=== PATIENT | female | born 1950 | race Caucasian/White ===

== ENCOUNTER 2017-09-29 06:58 | Outpatient (CLI) | payer MEDICARE, BC ==
--- NOTE | 2017-09-29 09:21 | Diagnostic Imaging Report ---
Indication: Cough Comparison: None 2 views of the chest obtained. Findings: Cardiomediastinal silhouette and pulmonary vascularity are within normal limits for age. The diaphragmatic contour is smooth and costophrenic angles are sharp. There are surgical clips in the right axillary region. There is volume loss and deformity of the right breast most likely from prior partial mastectomy. No pleural effusions are identified. The bones are osteopenic. Impression: No acute disease Stigmata of previous right lumpectomy/axillary lymph node dissection.
== END 2017-09-29 08:58 | disposition home or self-care (01) ==
LOC: RAD 06:58
DX: R05 Cough (principal); Z90.11 Acquired absence of right breast and nipple; M85.80 Other specified disorders of bone density and structure, unspecified site
CPT/HCPCS: 71020

== ENCOUNTER 2018-01-29 08:30 | Outpatient (CLI) | payer MEDICARE, BC ==
--- NOTE | 2018-01-29 13:38 | Diagnostic Imaging Report ---
Indication: Shoulder pain Technique: MRI of the left shoulder obtained in a 1.5 [employer]rella magnet. Pulse sequences obtained include axial and coronal proton fast spin-echo with fat saturation, sagittal T1 fast spin-echo, sagittal and coronal T2 fast spin-echo with fat saturation. Findings: The rotator cuff is normal in appearance. There is trace T2 hyperintensity within the subacromial bursa which may represent a mild subacromial bursitis. There is hypertrophy and subchondral irregularity and signal changes noted in the acromioclavicular joint consistent with an arthropathy. Alignment of the shoulder is normal. The long head of the biceps tendon is normal. The glenoid labrum is unremarkable. IMPRESSION: Mild to moderate arthropathy involving the acromioclavicular joint. Findings could be on the basis of a prior AC separation (grade 1 or 2). Please correlate clinically. Mild subacromial bursitis. Negative exam otherwise
--- NOTE | 2018-01-29 14:19 | Diagnostic Imaging Report ---
Indication: Anterior right elbow pain. Technique: MRI of the right elbow was imaged in a 1.5 [employer]rella magnet. Pulse sequences obtained include coronal T1 fast spin-echo, STIR, Proton FSE w/ fat saturation, sagittal STIR and axial proton fast spin-echo with and without fat saturation, Axial T2 FSE w/ fat sat and T1 FSE. Comparison: None Findings: The distal aspect of the biceps tendon demonstrates mild amount of T2 hyperintense edema just at and slightly proximal to its insertion with slight attenuation of the tendon suggestive of a low to intermediate grade partial biceps tendon tear. There is no rupture or proximal retraction of the tendon. The biceps aponeurosis is normal. Bone marrow signal normal. There is a small joint effusion. Brachioradialis tendon is normal. The ligaments about the elbow are normal. The common flexor and common extensor tendons are normal. IMPRESSION: Suspected low to intermediate grade partial distal biceps tendon tear without evidence of rupture or proximal retraction. Intact biceps aponeurosis.
== END 2018-01-29 10:30 | disposition home or self-care (01) ==
LOC: MRI 08:30
DX: M25.512 Pain in left shoulder (principal); M75.52 Bursitis of left shoulder

== ENCOUNTER 2019-02-15 11:23 | Outpatient (CLI) | payer BC, MEDICARE | END 2019-02-15 13:23 | disposition home or self-care (01) | LOC: LAB 11:23 | DX: K29.70 Gastritis, unspecified, without bleeding (principal); B96.81 Helicobacter pylori [H. pylori] as the cause of diseases classified elsewhere | CPT/HCPCS: 83013 ==